=== PATIENT | male | born 1980 | race African-American/Black ===

== ENCOUNTER 2020-02-24 13:41 | Inpatient (IN) | payer OTHER ==
[2020-02-24 14:17] VITALS: BMI 28.7
[2020-02-24] MEDS ORDERED: ACETAMINOPHEN 500 MG TABLET (FP) PO ONE (14:32)
[2020-02-24] MEDS ORDERED: ACETAMINOPHEN 325 MG TABLET (FP) ONE (16:00)
[2020-02-24] MEDS ORDERED: DEXAMETHASONE SOD PHOSPHATE 10 MG/1 ML VIAL IVPUSH ONE (17:59)
[2020-02-24 19:11] LABS: BASO % 0.6 % (0-2.0); HEMATOCRIT 43.5 % (35.4-49); HEMOGLOBIN 14.6 GM/dL (11.7-16.9); LYMPH % 14.8 % (8-40); MCH 28.2 pg (25.7-33.7); MCHC 33.7 g/dl (32.0-35.9); MEAN CELL VOLUME 83.8 fl (80-96); MEAN PLT VOLUME 9.3 fl (7.5-11.1); MONO % 7.6 % (3.8-10.2); PLATELET COUNT 256 K/MM3 (134-434); RBC 5.18 M/mm3 (4.00-5.60); RDW 14.8 % (11.9-15.9); WHITE BLOOD COUNT 5.2 K/mm3 (4.0-10.0)
[2020-02-24 19:19] LABS: INR 1.14 (0.83-1.09)
[2020-02-24 19:28] LABS: CHLORIDE 99 mmol/L (98-107); SODIUM 133 mmol/L (136-145)
[2020-02-24 19:30] LABS: CALCIUM 8.8 mg/dL (8.5-10.1)
[2020-02-24 19:31] LABS: ALBUMIN 3.3 g/dl (3.4-5.0); ANION GAP 8 MMOL/L (8-16); BLOOD UREA NITROGEN 6.8 mg/dL (7-18); CO2 26 mmol/L (21-32); GLUCOSE,RANDOM 184 mg/dL (74-106)
[2020-02-24 19:34] LABS: CREATININE 0.7 mg/dL (0.55-1.3); SGOT/AST 29 U/L (15-37); SGPT/ALT 18 U/L (13-61)
[2020-02-24 19:36] LABS: BILIRUBIN,TOTAL 0.4 mg/dL (0.2-1); TOT PROT 7.8 g/dl (6.4-8.2)
[2020-02-24 19:37] LABS: ALK PHOS 51 U/L (45-117)
[2020-02-24 20:06] LABS: LDH 460 U/L (87-246)
[2020-02-24] MEDS ORDERED: DEXAMETHASONE SOD PHOSPHATE 10 MG/1 ML VIAL ONE (20:11)
[2020-02-24] MEDS ORDERED: ENOXAPARIN NA (PORCINE) 80 MG/0.8 ML DISP.SYRIN SQ ONE (20:54)
[2020-02-24] MEDS ORDERED: ACETAMINOPHEN 325 MG TABLET (FP) PO PRN (23:20)
[2020-02-24] MEDS ORDERED: AZITHROMYCIN IVPB 500 MG/250 ML BAG IVPB ONE (23:32)
[2020-02-24] MEDS ORDERED: CEFTRIAXONE 1 GM in DEXTROSE 5%-WATER - 50 ML IVPB ONE (23:32)
[2020-02-25] MEDS ORDERED: ENOXAPARIN NA (PORCINE) 80 MG/0.8 ML DISP.SYRIN SQ ONE (01:52)
[2020-02-25] MEDS ORDERED: AZITHROMYCIN IVPB 500 MG/250 ML BAG IVPB ONE (01:52)
[2020-02-25] MEDS ORDERED: CEFTRIAXONE 1 GM/50 ML BAG ONE (01:52)
[2020-02-25 03:45] LABS: PH,URINE 6.5 (5.0-8.0); URINE APPEARANCE CLEAR; URINE BILIRUBIN NEGATIVE (NEGATIVE); URINE COLOR YELLOW; URINE GLUCOSE (UA) 3+ (NEGATIVE); URINE KETONE NEGATIVE (NEGATIVE); URINE LEUK ESTERASE NEGATIVE (NEGATIVE); URINE NITRITE NEGATIVE (NEGATIVE); URINE PROTEIN TRACE (NEGATIVE); URINE UROBILINOGEN 0.2 mg/dL (0.2-1.0)
[2020-02-25 07:59] LABS: BASO % 0.5 % (0-2.0); HEMATOCRIT 41.1 % (35.4-49); HEMOGLOBIN 13.9 GM/dL (11.7-16.9); LYMPH % 9.5 % (8-40); MCH 28.4 pg (25.7-33.7); MCHC 33.8 g/dl (32.0-35.9); MEAN PLT VOLUME 8.9 fl (7.5-11.1); MONO % 6.7 % (3.8-10.2); NEUT % 83.3 % (42.8-82.8); PLATELET COUNT 278 K/MM3 (134-434); RDW 14.7 % (11.9-15.9); WHITE BLOOD COUNT 4.5 K/mm3 (4.0-10.0)
[2020-02-25 08:25] LABS: BLOOD UREA NITROGEN 9.8 mg/dL (7-18); CALCIUM 8.5 mg/dL (8.5-10.1)
[2020-02-25 08:29] LABS: CREATININE 0.7 mg/dL (0.55-1.3)
[2020-02-25 08:30] LABS: BILIRUBIN,TOTAL 0.4 mg/dL (0.2-1); TOT PROT 7.2 g/dl (6.4-8.2)
[2020-02-25] MEDS ORDERED: DEXTROSE 5%-WATER - 50 ML IVPB ONE (08:32)
[2020-02-25] MEDS ORDERED: cefTRIAXone SODIUM 1 GM VIAL ONE (08:32)
[2020-02-25 09:11] LABS: MAGNESIUM 2.6 mg/dL (1.8-2.4)
[2020-02-25] MEDS: CEFTRIAXONE 1 GM in DEXTROSE 5%-WATER - 50 ML IVPB SCH (09:36)
[2020-02-25] MEDS: AZITHROMYCIN IVPB 500 MG/250 ML BAG IVPB SCH (09:37)
[2020-02-25] MEDS: ENOXAPARIN NA (PORCINE) 40 MG/0.4 ML DISP.SYRIN SQ SCH (09:37)
[2020-02-25] MEDS: DEXAMETHASONE SOD PHOSPHATE 4 MG/1 ML VIAL IVPUSH SCH (09:37)
[2020-02-25] MEDS ORDERED: PT OWN MED DRAWER 7, Y5N ONE (11:59)
[2020-02-25] MEDS: LEVOTHYROXINE NA 50 MCG TABLET (FP) PO SCH (12:32)
[2020-02-25] MEDS: BENZTROPINE MESYLATE 1 MG TABLET PO SCH ×2 (12:32→21:39)
[2020-02-25] MEDS: LOSARTAN POTASSIUM 50 MG TABLET PO SCH (12:32)
[2020-02-25] MEDS: VALPROIC ACID 250 MG CAPSULE PO SCH ×2 (12:32→21:39)
[2020-02-25] MEDS: REMDESIVIR 200 MG in SODIUM CHLORIDE 210 ML IVPB ONE ×3 (15:25→16:40)
[2020-02-25] MEDS: CHOLECALCIFEROL (VIT D3) 1,000 UNIT (25 MCG) TABLET PO SCH (15:26)
[2020-02-25] MEDS: ZINC SULFATE 220 MG CAPSULE (FP) PO SCH (15:26)
[2020-02-25] MEDS: ASCORBIC ACID 500 MG TABLET (FP) PO SCH (21:39)
[2020-02-25] MEDS: ATORVASTATIN CA 40 MG TABLET (FP) PO SCH (21:39)
[2020-02-26] MEDS: LEVOTHYROXINE NA 50 MCG TABLET (FP) PO SCH (06:06)
[2020-02-26 08:28] LABS: ALBUMIN 2.8 g/dl (3.4-5.0)
[2020-02-26 08:29] LABS: BLOOD UREA NITROGEN 15.5 mg/dL (7-18); MAGNESIUM 2.5 mg/dL (1.8-2.4)
[2020-02-26 08:32] LABS: CREATININE 0.7 mg/dL (0.55-1.3); PHOSPHOROUS 3.2 mg/dL (2.5-4.9)
[2020-02-26 08:33] LABS: BILIRUBIN,TOTAL 0.3 mg/dL (0.2-1)
[2020-02-26 08:49] LABS: HEMATOCRIT 41.2 % (35.4-49); HEMOGLOBIN 13.7 GM/dL (11.7-16.9); MCH 28.1 pg (25.7-33.7); MCHC 33.3 g/dl (32.0-35.9); MEAN CELL VOLUME 84.5 fl (80-96); PLATELET COUNT 391 K/MM3 (134-434); RBC 4.88 M/mm3 (4.00-5.60); RDW 15.1 % (11.9-15.9)
[2020-02-26] MEDS ORDERED: cefTRIAXone SODIUM 1 GM VIAL ONE (08:50)
[2020-02-26] MEDS ORDERED: DEXTROSE 5%-WATER - 50 ML IVPB ONE (08:50)
[2020-02-26] MEDS ORDERED: PT OWN MED DRAWER 7, Y5N ONE ×3 (08:50→20:39)
[2020-02-26] MEDS: ASCORBIC ACID 500 MG TABLET (FP) PO SCH ×2 (09:52→21:07)
[2020-02-26] MEDS: CEFTRIAXONE 1 GM in DEXTROSE 5%-WATER - 50 ML IVPB SCH (09:52)
[2020-02-26] MEDS: ENOXAPARIN NA (PORCINE) 40 MG/0.4 ML DISP.SYRIN SQ SCH (09:52)
[2020-02-26] MEDS: ZINC SULFATE 220 MG CAPSULE (FP) PO SCH (09:53)
[2020-02-26] MEDS: LOSARTAN POTASSIUM 50 MG TABLET PO SCH (09:53)
[2020-02-26] MEDS: CHOLECALCIFEROL (VIT D3) 1,000 UNIT (25 MCG) TABLET PO SCH (09:53)
[2020-02-26] MEDS: BENZTROPINE MESYLATE 1 MG TABLET PO SCH ×2 (09:53→21:07)
[2020-02-26] MEDS: DEXAMETHASONE SOD PHOSPHATE 4 MG/1 ML VIAL IVPUSH SCH (09:53)
[2020-02-26] MEDS: VALPROIC ACID 250 MG CAPSULE PO SCH ×2 (09:54→21:08)
[2020-02-26 09:57] LABS: ERYTHROCYTE SEDIMENTATION RATE 59 mm/hr (0-10)
[2020-02-26] MEDS: AZITHROMYCIN IVPB 500 MG/250 ML BAG IVPB SCH (10:20)
[2020-02-26] MEDS: REMDESIVIR 100 MG in SODIUM CHLORIDE 230 ML IVPB SCH (13:17)
[2020-02-26] MEDS: ATORVASTATIN CA 40 MG TABLET (FP) PO SCH (21:07)
[2020-02-27] MEDS: LEVOTHYROXINE NA 50 MCG TABLET (FP) PO SCH (07:00)
[2020-02-27 08:06] LABS: HEMATOCRIT 39.6 % (35.4-49); HEMOGLOBIN 13.6 GM/dL (11.7-16.9); MCH 28.8 pg (25.7-33.7); MCHC 34.4 g/dl (32.0-35.9); MEAN CELL VOLUME 83.8 fl (80-96); PLATELET COUNT 461 K/MM3 (134-434); RBC 4.73 M/mm3 (4.00-5.60); RDW 14.7 % (11.9-15.9); WHITE BLOOD COUNT 5.5 K/mm3 (4.0-10.0)
[2020-02-27 08:08] LABS: ALBUMIN 2.9 g/dl (3.4-5.0)
[2020-02-27 08:09] LABS: BLOOD UREA NITROGEN 16.2 mg/dL (7-18); MAGNESIUM 2.2 mg/dL (1.8-2.4)
[2020-02-27 08:10] LABS: BILIRUBIN,TOTAL 0.4 mg/dL (0.2-1)
[2020-02-27 08:11] LABS: CREATININE 0.8 mg/dL (0.55-1.3)
[2020-02-27] MEDS ORDERED: cefTRIAXone SODIUM 1 GM VIAL ONE (09:30)
[2020-02-27] MEDS ORDERED: PT OWN MED DRAWER 7, Y5N ONE ×3 (09:30→21:00)
[2020-02-27] MEDS ORDERED: DEXTROSE 5%-WATER - 50 ML IVPB ONE (09:30)
[2020-02-27] MEDS: CHOLECALCIFEROL (VIT D3) 1,000 UNIT (25 MCG) TABLET PO SCH (09:34)
[2020-02-27] MEDS: ZINC SULFATE 220 MG CAPSULE (FP) PO SCH (09:34)
[2020-02-27] MEDS: LOSARTAN POTASSIUM 50 MG TABLET PO SCH (09:34)
[2020-02-27] MEDS: ASCORBIC ACID 500 MG TABLET (FP) PO SCH ×2 (09:34→21:14)
[2020-02-27] MEDS: BENZTROPINE MESYLATE 1 MG TABLET PO SCH ×2 (09:35→21:15)
[2020-02-27] MEDS: ENOXAPARIN NA (PORCINE) 40 MG/0.4 ML DISP.SYRIN SQ SCH (09:36)
[2020-02-27] MEDS: VALPROIC ACID 250 MG CAPSULE PO SCH ×2 (09:36→21:16)
[2020-02-27] MEDS: CEFTRIAXONE 1 GM in DEXTROSE 5%-WATER - 50 ML IVPB SCH (09:37)
[2020-02-27 11:36] LABS: ERYTHROCYTE SEDIMENTATION RATE 53 mm/hr (0-10)
[2020-02-27] MEDS: DEXAMETHASONE SOD PHOSPHATE 4 MG/1 ML VIAL IVPUSH SCH (11:47)
[2020-02-27] MEDS: REMDESIVIR 100 MG in SODIUM CHLORIDE 230 ML IVPB SCH (14:38)
[2020-02-27] MEDS: ATORVASTATIN CA 40 MG TABLET (FP) PO SCH (21:14)
[2020-02-28] MEDS: LEVOTHYROXINE NA 50 MCG TABLET (FP) PO SCH (06:02)
[2020-02-28] MEDS ORDERED: PT OWN MED DRAWER 7, Y5N ONE (09:36)
[2020-02-28] MEDS ORDERED: cefTRIAXone SODIUM 1 GM VIAL ONE (09:36)
[2020-02-28] MEDS ORDERED: DEXTROSE 5%-WATER - 50 ML IVPB ONE (09:36)
[2020-02-28] MEDS: LOSARTAN POTASSIUM 50 MG TABLET PO SCH (09:41)
[2020-02-28] MEDS: CHOLECALCIFEROL (VIT D3) 1,000 UNIT (25 MCG) TABLET PO SCH (09:41)
[2020-02-28] MEDS: ZINC SULFATE 220 MG CAPSULE (FP) PO SCH (09:41)
[2020-02-28] MEDS: ASCORBIC ACID 500 MG TABLET (FP) PO SCH (09:41)
[2020-02-28] MEDS: DEXAMETHASONE SOD PHOSPHATE 4 MG/1 ML VIAL IVPUSH SCH (09:42)
[2020-02-28] MEDS: BENZTROPINE MESYLATE 1 MG TABLET PO SCH (09:42)
[2020-02-28] MEDS: ENOXAPARIN NA (PORCINE) 40 MG/0.4 ML DISP.SYRIN SQ SCH (09:43)
[2020-02-28] MEDS: VALPROIC ACID 250 MG CAPSULE PO SCH (09:43)
[2020-02-28] MEDS: CEFTRIAXONE 1 GM in DEXTROSE 5%-WATER - 50 ML IVPB SCH (09:44)
[2020-02-28] MEDS: REMDESIVIR 100 MG in SODIUM CHLORIDE 230 ML IVPB SCH (14:03)
[2020-02-28 15:46] VITALS: BP 102/70; PULSE 82; TEMP 98.2
== END 2020-02-28 15:58 | disposition home or self-care (01) | DRG 177 ==
LOC: JER 13:41 → JERBED 19:51 → J8W 02-25 03:59
PROVIDERS: ADMIT Internal Medicine; ATTEND Student in an Organized Health Care Education/Training Program
PROC: XW033E5 Introduction of Remdesivir Anti-infective into Peripheral Vein, Percutaneous Approach, New Technology Group 5 (ICD-10-PCS; principal; 2020-02-26)
PROC: XW13325 Transfusion of Convalescent Plasma (Nonautologous) into Peripheral Vein, Percutaneous Approach, New Technology Group 5 (ICD-10-PCS; 2020-02-26)
DX: U07.1 COVID-19 (principal); J12.89 Other viral pneumonia; J96.01 Acute respiratory failure with hypoxia; F25.9 Schizoaffective disorder, unspecified; I10 Essential (primary) hypertension; E78.5 Hyperlipidemia, unspecified; E11.9 Type 2 diabetes mellitus without complications; E03.9 Hypothyroidism, unspecified
CPT/HCPCS: 36415; 36430; 71045-TC-FY; 80053; 81003; 82248; 82550; 82553; 82728; 83615; 83735; 84100; 84484; 85025; 85027; 85379; 85610; 85651; 85730; 86140; 86850; 86900; 86901; 87040; 87086; 87804; 93005; 93010; 99285-25; C9399; C9803; J1100; P9017; U0003

== ENCOUNTER 2020-10-13 18:20 | Emergency (ER) | payer OTHER ==
[2020-10-13 18:34] VITALS: BP 144/95; PULSE 92; TEMP 99.8; BMI 28.8
== END 2020-10-13 19:19 | disposition home or self-care (01) ==
LOC: JER 18:20
DX: Z00.00 Encounter for general adult medical examination without abnormal findings (principal)
CPT/HCPCS: 99283-25; C9803; U0003; U0005